=== PATIENT | female | born 1960 | race Caucasian/White ===

== ENCOUNTER 2016-12-03 07:39 | Emergency (ER) | payer OTHER ==
[2016-12-03] MEDS ORDERED: Ibuprofen TAB* 600 MG PO ONE (08:15)
--- NOTE | 2016-12-03 08:49 | RAD ---
INDICATION: Distal left radius pain after a fall COMPARISON: None. TECHNIQUE: 3 views left wrist. REPORT: The visualized bones are properly aligned and well corticated. The joint spaces are normal.There is no fracture, dislocation or other focal osseous abnormality. IMPRESSION: Normal radiograph of the left wrist. If the patient's symptoms persist, follow-up imaging is recommended.
--- NOTE | 2016-12-03 09:27 | UC ---
Surekha Arguelles Rebecca, scribed for Maria Teresa Worthy MD on 12/03/16 at 0813 . Upper Extremity HPI - HPI Summary HPI Summary: Pt is a 56 y/o F who presents to [facility] c/o R wrist pain. Pt was playing tennis yesterday at approximately 1015 and she had stepped back, caught her her shoe on the court, and broke the fall with the L hand. Pain, bruising and swelling began immediately after the fall, worsening upon waking up today. Pain is currently severe, ranked 8/10 and characterized as sharp and throbbing. Iced the area and took Aleve and Ibuprofen yesterday which did not help pain. Sx aggravated by movement, alleviated by nothing. Additionally c/o decreased ROM. Denies elbow pain. No prior fractures. R-hand dominant. - History of Current Complaint Chief Complaint: UCUpperExtremity Stated Complaint: WRIST INJURY Time Seen by Provider: 12/03/16 08:00 Hx Obtained From: Patient Onset/Duration: Lasting Days - Yesterday, Still Present Severity Currently: Severe Pain Intensity: 8 Pain Scale Used: 0-10 Numeric Location Of Pain: Is Discrete @ - L wrist Character: Sharp, Throbbing Aggravating Factor(s): Movement Alleviating Factor(s): Nothing Associated Signs And Symptoms: Positive: Swelling, Bruising, Other - Decreased ROM Related History: Dominant Hand Right - Allergies/Home Medications Allergies/Adverse Reactions: Allergies Allergy/AdvReac Type Severity Reaction Status Date / Time No Known Allergies Allergy Verified 12/03/16 07:55 Home Medications: Home Medications Aspirin [Aspirin 81 MG TAB] 81 mg PO DAILY 12/03/16 [History Confirmed 12/03/16] Citalopram TAB* [CeleXA TAB*] 10 mg PO DAILY 12/03/16 [History Confirmed ] Ibuprofen [Motrin Ib] 200 mg PO SEE INSTRUCTIONS 12/03/16 [History Confirmed ] Levothyroxine TAB* [Synthroid TAB*] 88 mcg PO DAILY 12/03/16 [History Confirmed 12/03/16] Naproxen [Naprosyn 500 mg] 500 mg PO BID PRN 12/03/16 [History Confirmed ] PMH/Surg Hx/FS Hx/Imm Hx - Additional Past Medical History Additional PMH: NEGATIVE PMHx: HTN, DM, CA Cardiovascular History: Other Other Cardiovascular History: Venal stenosis - Surgical History Surgical History: Yes Surgery Procedure, Year, and Place: . 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 Lives: With Family Alcohol Use: Occasionally Alcohol Amount: one drink Substance Use Type: None Smoking Status (MU): Never Smoked Tobacco - Immunization History Most Recent Influenza Vaccination: utd Review of Systems Constitutional: Negative Skin: Bruising, Other - L wrist swelling Eyes: Negative ENT: Negative Respiratory: Negative Cardiovascular: Negative Gastrointestinal: Negative Genitourinary: Negative Motor: Negative Neurovascular: Negative Musculoskeletal: Decreased ROM, Other: - L wrist pain; NEGATIVE: Elbow pain Neurological: Negative Psychological: Negative All Other Systems Reviewed And Are Negative: Yes Physical Exam Triage Information Reviewed: Yes Appearance: Well-Appearing, Pain Distress - moderate Vital Signs: Initial Vital Signs Temp 97.6 F 12/03/16 08:00 Pulse 77 12/03/16 08:00 Resp 18 12/03/16 08:00 BP 97/77 12/03/16 08:00 Pulse Ox 100 12/03/16 08:00 ENT: Positive: Normal ENT inspection, Hearing grossly normal Neck exam: Normal Neck: Positive: Supple Respiratory: Positive: Lungs clear, Normal breath sounds Cardiovascular: Positive: RRR, No Murmur Musculoskeletal Exam: Other - left wrist with moderate swelling radial border, with early ecchymosis. Tenderness distal radius without obvious deformity. Tenderness proximal [facility] joint of thumb, rom jairo Musculoskeletal: Positive: ROM Limited @ - left wrist with 10 degrees of extension, decreased flexion. Diagnostics - Radiology Wrist XR Radiology Interpretation Completed By: ED Physician - Possible transverse nondisplaced fx of the distal radius, Radiologist - Normal radiograph of the left wrist. If the patient's symptoms persist, follow-up imaging is recommended. Re-Evaluation - Re-Evaluation First Eval Re-Evaluation Time: 08:48 Change: Unchanged Comment: Discussed ED physician interpretation of the wrist XR and she continues to be uncomfortable. Second Eval Re-Evaluation Time: 09:09 Comment: Discussed radiologist interpretation of XR. Upper Extremity Course/Dx - Course Course Of Treatment: Pt is a 56 y/o F c/o L wrist pain, swelling and bruising with no elbow pain s/p fall yesterday. Pt medications reviewed. requests narcotic pain medication for night time use as needed. [facility] reference [id number]; uses zolpidem - Differential Dx/Diagnosis Differential Diagnosis/HQI/PQRI: Contusion, Fracture (Closed), Hematoma, Strain , Sprain Provider Diagnoses: left wrist sprain Discharge - Discharge Plan Condition: Stable Disposition: HOME Prescriptions: HYDROcodone/ACETAMIN 5-325 MG* [[place] 5-325 TAB*] 1 tab PO Q8H PRN #10 tab MDD 3 PRN Reason: Pain - Moderate To Severe Patient Education Materials: Wrist Sprain (ED) Additional Instructions: Use the splint for comfort, but you can remove it and gently move the wrist through a range of motion. Hold aspirin, and continue use of ibuprofen 600mg three times daily for pain. If the pain persists, please schedule an orthopedic assessment. Follow up with your primary care physician in 1 to 2 weeks. Continue use of ice as needed. The documentation as recorded by the Surekha samayoa Rebecca accurately reflects the service I personally performed and the decisions made by me, Maria Teresa Worthy MD.
[2016-12-03 09:45] VITALS: BP 96/62
== END 2016-12-03 09:37 | disposition home or self-care (01) ==
LOC: UCEAST 07:39
DX: S63.502A Unspecified sprain of left wrist, initial encounter (principal); Z79.82 Long term (current) use of aspirin; W18.39XA Other fall on same level, initial encounter; Y93.59 Activity, other involving other sports and athletics played individually; Y92.9 Unspecified place or not applicable
CPT/HCPCS: 99212; A9270-GY; G0463